=== PATIENT | female | born 1970 | race Two or more races ===

== ENCOUNTER 2018-07-18 06:00 | Day surgery (SDC) | payer OTHER ==
[~2018-07-18 06:00] MED LIST: ADERAL PO; CATAFLAN PO; CYMBALTA PO; GABAPENTIN800 MG PO; NORFLEX PO; TRAMADOL HCL50 MG PO
== END 2018-07-18 10:40 | disposition home or self-care (01) ==
LOC: CIR.AMB 06:00
DX: M75.121 Complete rotator cuff tear or rupture of right shoulder, not specified as traumatic (principal); M75.41 Impingement syndrome of right shoulder; M13.811 Other specified arthritis, right shoulder

== ENCOUNTER 2018-07-25 13:12 | Outpatient (CLI) | payer OTHER | END 2018-07-25 13:17 | disposition home or self-care (01) | LOC: SONOGRAMA 13:12 | DX: E04.2 Nontoxic multinodular goiter (principal) ==